=== PATIENT | male | born 1975 | race Caucasian/White ===

== ENCOUNTER 2017-10-29 18:29 | Emergency (ER) | payer OTHER ==
[~2017-10-29 18:29] MED LIST: ALBU8.5H12 IH; ALPR-1 PO; AMIT-104 PO; CODE118S5 PO; DOC100 PO; LOR5/325 PO; NO ROUTINE MEDS; NO RTN MEDS; PER PO; PRED20TA6 PO
[2017-10-29 18:47] VITALS: BP 136/98
[2017-10-29] MEDS ORDERED: DEXT10TA9 PO (18:49)
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
== END 2017-10-29 19:25 | disposition home or self-care (01) ==
LOC: ER 19:24
DX: G25.89 Other specified extrapyramidal and movement disorders (principal); M54.2 Cervicalgia
CPT/HCPCS: 99282

== ENCOUNTER 2017-12-10 19:05 | Emergency (ER) | payer OTHER ==
[~2017-12-10 19:05] MED LIST changes: +DEXT10TA9 PO
[2017-12-10] MEDS ORDERED: DESV50TA PO (19:14)
--- NOTE | 2017-12-10 19:14 | ER Report ---
History and Physical Time Seen By MD: 19:14 Hx. of Stated Complaint: neck pain for a while, had came into the er before, around 1600 the pain got worse again. states that it hurst to swollow take a deep breath HPI/ROS CHIEF COMPLAINT: Neck pain HISTORY OF PRESENT ILLNESS: This is a 42-year-old male presents to the emergency department for neck pain. Patient was seen and evaluated here couple months ago for neck pain, which time he declined imaging and medications however he did follow-up with physical therapy has been doing well with that. Recently he's been doing a fair amount of Mountain biking, no injuries however today he began to have significant pain in his cervical spine and down his left trapezium. Armida ent is actively holding his neck and shoulder INR the room. Patient appears to be in discomfort. No numbness or tingling distal. REVIEW OF SYSTEMS: Constitutional: No fever, no chills. Eyes: No discharge. ENT: No sore throat. Cardiovascular: No chest pain, no palpitations. Respiratory: No cough, no shortness of breath. Gastrointestinal: No abdominal pain, no vomiting. Genitourinary: No hematuria. Musculoskeletal: As above. Skin: No rashes. Neurological: No headache. Allergies: Coded Allergies: cefaclor (Verified Allergy, Mild, 04/13/15) latex (Verified Allergy, Mild, 10/29/17) penicillin G (Verified Allergy, Mild, 04/13/15) adhesive (Unverified Adverse Reaction, Mild, 04/13/15) PEELING SKIN Home Meds Active Scripts Lidocaine (Lidocaine) 5 % Adh..patch, 1 PATCH.24H TOP PRN, #1 PACK 0 Refills Prov:RADHA ALVES [facility] 12/10/17 Ondansetron (ZOFRAN ODT) 4 Mg Tab.rapdis, 4 MG PO Q6H PRN for NAUSEA/VOMITING, #20 TAB.ALEXANDRU Prov:RADHA ALVES [facility] 12/10/17 Hydrocodone Bit/Acetaminophen (HYDROCODON-ACETAMINOPHEN 5-325) 1 Each Tablet, 1 EACH PO Q4-6H PRN for PAIN, #8 TAB 0 Refills Prov:RADHA ALVES [facility] 12/10/17 Diazepam (VALIUM) 5 Mg Tablet, 5 MG PO 2-3XD, #10 TAB 0 Refills Prov:RADHA ALVES [facility]- 12/10/17 Prednisone (PREDNISONE) 20 Mg Tablet, 20 MG PO BID, #10 TAB Prov:RADHA ALVES [facility]- 12/10/17 Reported Medications Desvenlafaxine (DESVENLAFAXINE ER) 50 Mg Tab.er.24h, 50 MG PO 12/10/17 Amphet Asp/Amphet/D-Amphet (ADDERALL 10 MG TABLET) 10 Mg Tablet, 10 MG PO DAILY 10/29/17 Past Medical/Surgical History The patient has a past medical and surgical history of migraines, asthma, left upper quadrant pain, right anterior cruciate ligament repair, chronic neck and back pain, adhesions found on abdominal surgery. Reviewed Nurses Notes: Yes Hx Smoking: No Smoking Status: Never Smoker Hx Substance Use Disorder: No Hx Alcohol Use: Yes Constitutional Vital Sign - Last 24 Hours 12/10/17 19:09 Temp 98.2 Pulse 93 Resp 16 B/P (MAP) 133/93 Pulse Ox 96 O2 Delivery Room Air Physical Exam General Appearance: The patient is alert, has no immediate need for airway protection and no signs of toxicity. Eyes: Pupils equal and round no pallor or injection. ENT, Mouth: Mucous membranes are moist. Respiratory: There are no retractions, lungs are clear to auscultation. Cardiovascular: Regular rate and rhythm. Gastrointestinal: Abdomen is soft and non tender, no masses, bowel sounds normal. Neurological: Alert and oriented 4. Moving all extremities. Following all commands. No focal neuro deficits. Good equal acute care nurse practitioner strength bilaterally. Significant increase in left sided cervical discomfort with resistance when activating the muscles in a cephalad motion. Skin: Warm and dry, no rashes. Musculoskeletal: Cervical spine is tender with palpation, there is an area around C5-C6 that causes significant discomfort with palpation. No numbness or tingling. Extremities are nontender, nonswollen and have full range of motion. DIFFERENTIAL DIAGNOSIS: After history and physical exam differential diagnosis was considered for cervical strain, cervical radiculopathy and subluxation. Medical Decision Making Data Points Result Diagram: 12/10/17195012/10/171950 Laboratory Hematology Test 12/10/17 19:51 Red Blood Count 5.48 M/uL (4.00-5.60) Mean Corpuscular Volume 84.7 fL (80.0-96.0) Mean Corpuscular Hemoglobin 29.0 pg (26.0-33.0) Mean Corpuscular Hemoglobin Concent 34.3 g/dL (32.0-36.0) Red Cell Distribution Width 13.4 % (11.5-14.5) Mean Platelet Volume 8.0 fL (7.2-11.1) Neutrophils (%) (Auto) 57.1 % (39.4-72.5) Lymphocytes (%) (Auto) 32.6 % (17.6-49.6) Monocytes (%) (Auto) 8.3 % (4.1-12.4) Eosinophils (%) (Auto) 1.2 % (0.4-6.7) Basophils (%) (Auto) 0.8 % (0.3-1.4) Nucleated RBC Relative Count (auto) 0.1 /100WBC Neutrophils # (Auto) 3.8 K/uL (2.0-7.4) Lymphocytes # (Auto) 2.1 K/uL (1.3-3.6) Monocytes # (Auto) 0.5 K/uL (0.3-1.0) Eosinophils # (Auto) 0.1 K/uL (0.0-0.5) Basophils # (Auto) 0.1 K/uL (0.0-0.1) Nucleated RBC Absolute Count (auto) 0.00 K/uL Sodium Level 136 mmol/L (137-145) Potassium Level 3.9 mmol/L (3.5-5.0) Chloride Level 103 mmol/L (98-107) Carbon Dioxide Level 24 mmol/L (22-30) Blood Urea Nitrogen 19 mg/dl (9-21) Creatinine 0.90 mg/dl (0.66-1.25) Glomerular Filtration Rate Calc > 60.0 Random Glucose 90 mg/dl (75-110) Calcium Level 9.3 mg/dl (8.4-10.2) Total Bilirubin 0.8 mg/dl (0.2-1.3) Aspartate Amino Transf (AST/SGOT) 30 U/L (0-35) Alanine Aminotransferase (ALT/SGPT) 42 U/L (0-56) Alkaline Phosphatase 52 U/L (0-126) Total Protein 7.2 g/dl (6.3-8.2) Albumin 4.4 g/dl (3.5-5.0) Chemistry Test 12/10/17 19:51 White Blood Count 6.6 k/uL (4.5-11.0) Red Blood Count 5.48 M/uL (4.00-5.60) Hemoglobin 15.9 g/dL (14.0-18.0) Hematocrit 46.4 % (42.0-52.0) Mean Corpuscular Volume 84.7 fL (80.0-96.0) Mean Corpuscular Hemoglobin 29.0 pg (26.0-33.0) Mean Corpuscular Hemoglobin Concent 34.3 g/dL (32.0-36.0) Red Cell Distribution Width 13.4 % (11.5-14.5) Platelet Count 256 K/uL (150-450) Mean Platelet Volume 8.0 fL (7.2-11.1) Neutrophils (%) (Auto) 57.1 % (39.4-72.5) Lymphocytes (%) (Auto) 32.6 % (17.6-49.6) Monocytes (%) (Auto) 8.3 % (4.1-12.4) Eosinophils (%) (Auto) 1.2 % (0.4-6.7) Basophils (%) (Auto) 0.8 % (0.3-1.4) Nucleated RBC Relative Count (auto) 0.1 /100WBC Neutrophils # (Auto) 3.8 K/uL (2.0-7.4) Lymphocytes # (Auto) 2.1 K/uL (1.3-3.6) Monocytes # (Auto) 0.5 K/uL (0.3-1.0) Eosinophils # (Auto) 0.1 K/uL (0.0-0.5) Basophils # (Auto) 0.1 K/uL (0.0-0.1) Nucleated RBC Absolute Count (auto) 0.00 K/uL Glomerular Filtration Rate Calc > 60.0 Calcium Level 9.3 mg/dl (8.4-10.2) Total Bilirubin 0.8 mg/dl (0.2-1.3) Aspartate Amino Transf (AST/SGOT) 30 U/L (0-35) Alanine Aminotransferase (ALT/SGPT) 42 U/L (0-56) Alkaline Phosphatase 52 U/L (0-126) Total Protein 7.2 g/dl (6.3-8.2) Albumin 4.4 g/dl (3.5-5.0) EKG/Imaging Imaging CT Cervical Spine Indication: Neck pain. Comparison: None available. Technique: Axial CT imaging of the cervical spine was performed. 2-D sagittal and coronal CT reformats were also obtained. One of the following dose optimization techniques was utilized in the performance of this exam: automated exposure control; adjustment of the mA and/or kV according to the patient's size; or use of an iterative reconstruction technique. Specific details can be referenced in the facility's radiology CT exam operational policy. Findings: The vertebral bodies are aligned. No fracture or facet dislocation. No bony lesions. Small cystic area seen in the anterior inferior C6 vertebral body without aggressive abnormalities. This may be represent early degenerative changes. No other significant degenerative changes. The endplates are maintained. No obvious disc herniation. Prevertebral soft tissues and surrounding soft tissues are unremarkable. Lung apices are clear. Impression: 1. No acute osseous or acute alignment abnormality of the cervical spine Report Dictated By: He Martinez at 12/10/2017 8:57 PM Report E-Signed By: He Martinez at 12/10/2017 9:01 PM [id number] ED Course/Re-evaluation Clinical Indication for ER IV: IV Access ED Course The patient was admitted to a room. A history physical were obtained. Differential diagnoses were considered. IV was started. The patient was given 30 mg IV Toradol. 5 mg IV Valium 2. Patient was also given 4 mg IV morphine. Patient did begin to have some relief. The CT of the cervical spine was negative for any acute abnormalities. Blood work unremarkable. I did review these results with the patient. I did recommend that he follow-up with Dr. Carrero as soon as possible for a formal evaluation of his neck, which may include an MRI. The patient did express understanding. Then the patient was sent home with a take home pack for Valium, hydrocodone. He was also given 60 mg by mouth prednisone in the ED. Patient was given prescriptions for hydrocodone, Valium, prednisone and Zofran. The patient will schedule follow-up appointment with Dr. Carrero as is possible. Patient did have significant improvement at the time of discharge. The patient was also encouraged to return to the ER for any concerns or worsening symptoms. Decision to Disposition Date: Dec 10, 2017 Decision to Disposition Time: 21:35 Depart Departure Latest Vital Signs Vital Signs Date Time Temp Pulse Resp B/P (MAP) Pulse Ox O2 Delivery O2 Flow Rate FiO2 12/10/17 19:09 98.2 93 16 133/93 96 Room Air Impression: Primary Impression: Neck pain Condition: Improved Disposition: HOME OR SELF-CARE Referrals: ANGEL CARRERO MD 5 Days New Scripts Lidocaine (Lidocaine) 5 % Adh..patch 1 PATCH.24H TOP PRN, #1 PACK 0 Refills Prov: RADHA ALVES [facility] 12/10/17 Ondansetron (ZOFRAN ODT) 4 Mg Tab.rapdis 4 MG PO Q6H PRN for NAUSEA/VOMITING, #20 TAB.ALEXANDRU Prov: RADHA ALVES [facility] 12/10/17 Hydrocodone Bit/Acetaminophen (HYDROCODON-ACETAMINOPHEN 5-325) 1 Each Tablet 1 EACH PO Q4-6H PRN for PAIN, #8 TAB 0 Refills Prov: RADHA ALVES [facility] 12/10/17 Diazepam (VALIUM) 5 Mg Tablet 5 MG PO 2-3XD, #10 TAB 0 Refills Prov: RADHA ALVES [facility] 12/10/17 Prednisone (PREDNISONE) 20 Mg Tablet 20 MG PO BID, #10 TAB Prov: RADHA ALVES [facility] 12/10/17 Patient Instructions: Acute Neck Pain (ED), Chronic Neck Pain (GEN), Neck Pain (ED) Additional Instructions: You have been prescribed Valium and Hydrocodone both are very strong medications, be very cautious when taking these as they can cause severe drowsiness and respiratory depression. Take the valium as needed for muscle spasms. Take the Hydrocodone for severe pain. Take the Zofran for Nausea. Take the prednisone to help decrease the inflammation in your neck, which is likely contributing to the neck discomfort you are having. Please follow up with Dr. Carrero as soon as possible to have a formal evaluation of your neck, this may include an MRI, among other things. While taking the Prednisone, do not take Ibuprofen. If you are taking Hydrocodone, be aware, this does contain Tylenol, so do not take extra Tylenol at the same time. Drink plenty of fluids. Get as much rest as you can. Return to the ED for any other concerns or worsening symptoms. RADHA ALVES [employer]M [employer]INTER-BC Dec 10, 2017 19:14
[2017-12-10] MEDS ORDERED: KETOROLAC 30 MG/ML VIAL IVP ONE (19:30)
[2017-12-10] MEDS ORDERED: DIAZEPAM 50 MG/10 ML MDV IVP ONE ×2 (19:30→21:35)
[2017-12-10 20:04] LABS: PLATELET COUNT, AUTOMATED 256 K/uL (150-450)
[2017-12-10 20:30] VITALS: BP 101/69
[2017-12-10] MEDS ORDERED: MORPHINE 4 MG/ML SDV IVP ONE (21:00)
--- NOTE | 2017-12-10 21:05 | RADIOLOGY IMAGING REPORT ---
FACILITY: [facility] PATIENT NAME: Estrada Granger : 1975 MR: [id number] V: [id number] EXAM DATE: ORDERING PHYSICIAN: RADHA ALVES TECHNOLOGIST: Location: [facility] [place] Patient: Estrada Granger : 1975 Visit/Account:[id number] Date of Sevice: 12/10/2017 CT Cervical Spine Indication: Neck pain. Comparison: None available. Technique: Axial CT imaging of the cervical spine was performed. 2-D sagittal and coronal CT reforma ts were also obtained. One of the following dose optimization techniques was utilized in the performance of this exam: autom ated exposure control; adjustment of the mA and/or kV according to the patient's size; or use of an i terative reconstruction technique. Specific details can be referenced in the facility's radiology CT exam operational policy. Findings: The vertebral bodies are aligned. No fracture or facet dislocation. No bony lesions. Small cystic are a seen in the anterior inferior C6 vertebral body without aggressive abnormalities. This may be repre sent early degenerative changes. No other significant degenerative changes. The endplates are [place]ta[place] dan[place]. No obvious disc herniation. Prevertebral soft tissues and surrounding soft tissues are unremarka ble. Lung apices are clear. Impression: 1. No acute osseous or acute alignment abnormality of the cervical spine Report Dictated By: He Martinez at 12/10/2017 8:57 PM Report E-Signed By: He Martinez at 12/10/2017 9:01 PM [id number]
[2017-12-10] MEDS ORDERED: ACET/HYDROC 5/325MG TH ER ONLY 2 TAB/BOTTLE PO ONE (21:35)
[2017-12-10] MEDS ORDERED: DIAZEPAM 5 MG TAB TH 2 TAB/BOTTLE PO ONE (21:35)
[2017-12-10] MEDS ORDERED: predniSONE 20 MG TAB PO ONE (21:35)
[2017-12-10] MEDS ORDERED: LIDOCAINE 5% PATCH TP SCH (21:35)
[2017-12-10] MEDS ORDERED: ONDA4TAB PO (21:39)
[2017-12-10] MEDS ORDERED: PRED20TA6 PO (21:39)
[2017-12-10] MEDS ORDERED: DIA5 PO (21:39)
[2017-12-10] MEDS ORDERED: HYDR-385 PO (21:39)
[2017-12-10] MEDS ORDERED: LIDO700A19 TOP (21:51)
[2017-12-11] MEDS ORDERED: PATCH REMOVAL 1 EA TOP SCH (21:00)
== END 2017-12-10 22:04 | disposition home or self-care (01) ==
LOC: ER 19:52
DX: M54.2 Cervicalgia (principal)
CPT/HCPCS: 72125; 85025; 96374; 96375; 96376; 99284; J1885; J2270; J3360; J7512; 82040; 82247; 82310; 82374; 82435; 82565; 82947; 84075; 84132; 84155; 84295; 84450; 84460; 84520

== ENCOUNTER 2017-12-12 18:34 | Emergency (ER) | payer OTHER ==
[~2017-12-12 18:34] MED LIST changes: +DESV50TA PO; +DIA5 PO; +HYDR-385 PO; +LIDO700A19 TOP; +ONDA4TAB PO
--- NOTE | 2017-12-12 18:42 | ER Report ---
History and Physical Time Seen By MD: 18:42 Hx. of Stated Complaint: CONTINUED LEFT SIDED NECK PAIN. REPORTS THAT HE HAD MRI THAT WAS INCONCLUSIVE AND HERE FOR CTA OF NECK PER CAT JOSEPH/RADHA CHIEF COMPLAINT: Neck pain HISTORY OF PRESENT ILLNESS: This is a 42-year-old male who returns to the emergency department for recurrent neck pain. The patient was seen and evaluated in the emergency department 2 days ago, did follow-up with the orthopedic outpatient coding specialist Dr. Durant, the patient had an MRI completed at [facility] today, the radiologist read the MRI as normal however there was a concern that there may be a vertebral artery dissection, I could not fully evaluate without contrast, therefore they suggested either a CTA or MRA. The patient arrives alert and oriented, still in pain but manageable at this time. No other complaints. Fevers or chills. No paresthesias. REVIEW OF SYSTEMS: Respiratory: No cough, no dyspnea. Cardiovascular: No chest pain, no palpitations. Gastrointestinal: No vomiting, no abdominal pain. Musculoskeletal: As above. Allergies: Coded Allergies: cefaclor (Verified Allergy, Mild, 04/13/15) latex (Verified Allergy, Mild, 10/29/17) penicillin G (Verified Allergy, Mild, 04/13/15) adhesive (Unverified Adverse Reaction, Mild, 04/13/15) PEELING SKIN Home Meds Active Scripts Diazepam (VALIUM) 5 Mg Tablet, 5 MG PO 2-3XD, #15 TAB Prov:SUKHDEEP ALVES [facility] 12/12/17 Hydrocodone Bit/Acetaminophen (HYDROCODON-ACETAMINOPHEN 5-325) 1 Each Tablet, 1 EACH PO Q4-6H PRN for PAIN, #10 TAB 0 Refills Prov:SUKHDEEP ALVES [facility] 12/12/17 Lidocaine (Lidocaine) 5 % Adh..patch, 1 PATCH.24H TOP PRN, #1 PACK 0 Refills Prov:SUKHDEEP ALEVS [facility] 12/10/17 Ondansetron (ZOFRAN ODT) 4 Mg Tab.rapdis, 4 MG PO Q6H PRN for NAUSEA/VOMITING, #20 TAB.ALEXANDRU Prov:SUKHDEEP ALVES [facility] 12/10/17 Hydrocodone Bit/Acetaminophen (HYDROCODON-ACETAMINOPHEN 5-325) 1 Each Tablet, 1 EACH PO Q4-6H PRN for PAIN, #8 TAB 0 Refills Prov:SUKHDEEP ALVES [facility] 12/10/17 Diazepam (VALIUM) 5 Mg Tablet, 5 MG PO 2-3XD, #10 TAB 0 Refills Prov:SUKHDEEP ALVES [facility] 12/10/17 Prednisone (PREDNISONE) 20 Mg Tablet, 20 MG PO BID, #10 TAB Prov:SUKHDEEP ALVES [facility] 12/10/17 Reported Medications Desvenlafaxine (DESVENLAFAXINE ER) 50 Mg Tab.er.24h, 50 MG PO 12/10/17 Amphet Asp/Amphet/D-Amphet (ADDERALL 10 MG TABLET) 10 Mg Tablet, 10 MG PO DAILY 10/29/17 Past Medical/Surgical History The patient has a past medical and surgical history of migraines, asthma, left upper quadrant pain, right anterior cruciate ligament repair, chronic neck and back pain, adhesions found on abdominal surgery. Reviewed Nurses Notes: Yes Hx Smoking: No Smoking Status: Never Smoker Hx Substance Use Disorder: No Hx Alcohol Use: Yes Constitutional Vital Sign - Last 24 Hours 12/12/17 12/12/17 12/12/17 12/12/17 18:34 18:39 18:41 19:00 Pulse ??? 94 Resp 20 B/P (MAP) 146/85 (105) 146/85 119/81 (94) Pulse Ox 94 O2 Delivery Room Air 12/12/17 12/12/17 19:04 19:30 Pulse 88 B/P (MAP) 111/88 (96) Pulse Ox 96 Physical Exam General Appearance: The patient is alert, has no immediate need for airway protection and no current signs of toxicity. Eyes: Pupils equal and round no injection. Respiratory: Chest is non tender, lungs are clear to auscultation. Cardiac: regular rate and rhythm. Gastrointestinal: Abdomen is soft and non tender, no masses, bowel sounds normal. Musculoskeletal: Neck: Neck is supple, mild tenderness with palpation, no crepitus, ecchymosis or deformity noted. Extremities have full range of motion and are non tender. Skin: No rashes or lesions. DIFFERENTIAL DIAGNOSIS: After history and physical exam differential diagnosis was considered for subluxation, cervical spine strain, vertebral artery dissection. Medical Decision Making Data Points Result Diagram: 12/12/17 1850 Laboratory Hematology Test 12/12/17 18:50 Sodium Level 138 mmol/L (137-145) Potassium Level 4.1 mmol/L (3.5-5.0) Chloride Level 103 mmol/L (98-107) Carbon Dioxide Level 25 mmol/L (22-30) Blood Urea Nitrogen 21 mg/dl (9-21) Creatinine 0.80 mg/dl (0.66-1.25) Glomerular Filtration Rate Calc > 60.0 Random Glucose 172 mg/dl (75-110) Calcium Level 9.0 mg/dl (8.4-10.2) Total Bilirubin 0.3 mg/dl (0.2-1.3) Aspartate Amino Transf (AST/SGOT) 37 U/L (0-35) Alanine Aminotransferase (ALT/SGPT) 58 U/L (0-56) Alkaline Phosphatase 43 U/L (0-126) Total Protein 6.6 g/dl (6.3-8.2) Albumin 4.0 g/dl (3.5-5.0) Chemistry Test 12/12/17 18:50 Glomerular Filtration Rate Calc > 60.0 Calcium Level 9.0 mg/dl (8.4-10.2) Total Bilirubin 0.3 mg/dl (0.2-1.3) Aspartate Amino Transf (AST/SGOT) 37 U/L (0-35) Alanine Aminotransferase (ALT/SGPT) 58 U/L (0-56) Alkaline Phosphatase 43 U/L (0-126) Total Protein 6.6 g/dl (6.3-8.2) Albumin 4.0 g/dl (3.5-5.0) EKG/Imaging Imaging Location: [facility] [place] Patient: Estrdaa Granger : 1975 Visit/Account:[id number] Date of Sevice: 12/12/2017 EXAMINATION: CTA Neck with intravenous contrast HISTORY: Possible left vertebral artery dissection. TECHNIQUE: Overlapping thin sections were obtained during a bolus of IV contrast from the aortic arch through the [place] of [place]. Reconstruction of t he source data set includes multiplanar 2D in the sagittal and coronal planes, and 3D coronal thin slab MIP series. Engineering Geologist images have been stored on PACS. Stenosis of the internal carotid arteries are calculated using NASCET criteria. One of the following dose optimization techniques was utilized in the performance of this exam: Automated exposure control; adjustment of the mA and/or kV according to the patient's size; or use of an iterative reconstruction technique. Specific details can be referenced in the facility's radiology CT exam operational policy. CONTRAST: 75 mL of IV Isovue-370 COMPARISON: Cervical spine MRI from same date. FINDINGS: Angiographic findings: Aortic arch and great vessels: Negative. Right CCA / ICA: Negative. Left CCA / ICA: Negative. Vertebro-basilar: The right vertebral artery is dominant and the left vertebral artery arises from the aortic arch. No evidence of vertebral artery dissection. This appearance on the recent cervical spine MRI is secondary to congenital asymmetry. Additional non-angiographic findings: Mild mucosal thickening in the right maxillary sinus. Rightward nasal septal deviation. IMPRESSION: No evidence of vertebral artery dissection. 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 Report Dictated By: Sukhdeep Rincon MD at 12/12/2017 8:10 PM Report E-Signed By: Sukhdeep Rincon MD at 12/12/2017 8:18 PM WSN:[id number] ED Course/Re-evaluation Clinical Indication for ER IV: IV Access ED Course The patient was admitted to room. His chest and physical were obtained. Differential diagnoses were considered. A CTA of the neck was negative for a vertebral artery dissection. I did review the results with the patient and his . Patient was relieved. The patient will follow-up with Dr. Durant in the next 1-2 days for more definitive treatment of his cervical spine pain. In the interim I did send another prescription for hydrocodone and Valium to the [facility]. The patient was also encouraged to start taking stool softeners and MiraLAX to prevent constipation. Patient expressed understanding and was discharged home. Patient was encouraged to return to the ER for any other concerns or worsening symptoms. Decision to Disposition Date: Dec 12, 2017 Decision to Disposition Time: 20:25 Depart Departure Latest Vital Signs Vital Signs Date Time Temp Pulse Resp B/P (MAP) Pulse Ox O2 Delivery O2 Flow Rate FiO2 12/12/17 19:30 111/88 (96) 12/12/17 19:04 88 96 12/12/17 18:41 20 Room Air Impression: Primary Impression: Neck pain Condition: Improved Disposition: HOME OR SELF-CARE New Scripts Diazepam (VALIUM) 5 Mg Tablet 5 MG PO 2-3XD, #15 TAB Prov: SUKHDEEP ALVES [facility]- 12/12/17 Hydrocodone Bit/Acetaminophen (HYDROCODON-ACETAMINOPHEN 5-325) 1 Each Tablet 1 EACH PO Q4-6H PRN for PAIN, #10 TAB 0 Refills Prov: SUKHDEEP ALVES [facility] 12/12/17 Patient Instructions: Acute Neck Pain (ED) Additional Instructions: There is no evidence of vertebral artery dissection. I did refill the hydrocodone and Valium. Dr. Durant's office will be contacting you in the next 1-2 days for more treatment options. Be sure to start the stool softeners, I would also start a quarter To a half Of MiraLAX once a day. Drink plenty of water. Return to the emergency department for any other concerns or worsening symptoms. SUKHDEEP ALVES [facility] Dec 12, 2017 18:42
[2017-12-12] MEDS ORDERED: IOPAMIDOL 76% 75 ML INFUS BTL 75 ML ONE (19:01)
[2017-12-12] MEDS ORDERED: NS(*) 0.9% 50 ML BAG 50 ML ONE (19:01)
--- NOTE | 2017-12-12 20:21 | RADIOLOGY IMAGING REPORT ---
FACILITY: [facility] PATIENT NAME: Estrada Granger : 1975 MR: [id number] V: [id number] EXAM DATE: [id number] ORDERING PHYSICIAN: RADHA ALVES TECHNOLOGIST: Location: [facility] Patient: Estrada Granger : 1975 Visit/Account:[id number] Date of Sevice: 12/12/2017 EXAMINATION: CTA Neck with intravenous contrast HISTORY: Possible left vertebral artery dissection. TECHNIQUE: Overlapping thin sections were obtained during a bolus of IV contrast from the aortic ar ch through the [place]. Reconstruction of the source data set includes multiplanar 2D in the sagittal and coronal planes, and 3D coronal thin slab MIP series. Assistant Plant Control Operator images have been st ored on PACS. Stenosis of the internal carotid arteries are calculated using NASCET criteria. One of the following dose optimization techniques was utilized in the performance of this exam: Autom ated exposure control; adjustment of the mA and/or kV according to the patient's size; or use of an i terative reconstruction technique. Specific details can be referenced in the facility's radiology C T exam operational policy. CONTRAST: 75 mL of IV Isovue-370 COMPARISON: Cervical spine MRI from same date. FINDINGS: Angiographic findings: Aortic arch and great vessels: Negative. Right CCA / ICA: Negative. Left CCA / ICA: Negative. Vertebro-basilar: The right vertebral artery is dominant and the left vertebral artery arises from the aortic arch. No evidence of vertebral artery dissection. This appearance on the recent cervical s [place] MRI is secondary to congenital asymmetry. Additional non-angiographic findings: Mild mucosal thickening in the right maxillary sinus. Rightward nasal septal deviation. IMPRESSION: No evidence of vertebral artery dissection. The left vertebral artery is congenitally sma ll which accounts for the appearance on the recent cervical spine MRI. Report Dictated By: Radha Rincon MD at 12/12/2017 8:10 PM Report E-Signed By: Radha Rincon MD at 12/12/2017 8:18 PM WSN:[id number]
[2017-12-12] MEDS ORDERED: DIA5 PO (20:29)
[2017-12-12] MEDS ORDERED: HYDR-385 PO (20:29)
[2017-12-12 20:30] VITALS: BP 118/75
== END 2017-12-12 20:39 | disposition home or self-care (01) ==
LOC: ER 18:57
DX: M54.2 Cervicalgia (principal)
CPT/HCPCS: 70498; 99284; J7050; Q9967; 82040; 82247; 82310; 82374; 82435; 82565; 82947; 84075; 84132; 84155; 84295; 84450; 84460; 84520

== ENCOUNTER 2018-02-11 05:20 | Emergency (ER) | payer OTHER ==
[2018-02-11] MEDS ORDERED: NS(*) 0.9% 1000 ML BAG 1,000 ML IV ONE ×2 (05:34→07:55)
--- NOTE | 2018-02-11 05:34 | ER Report ---
History and Physical Time Seen By MD: 05:34 Hx. of Stated Complaint: PATIENT STATES HAVING PAIN IN ABDOMEN SINCE LAST NIGHT AROUND 1900, CAME ON AFTER EATING, HAVING NAUSEA AND VOMITING. PATIENT STATES SAME INCIDENT LAST WEEK. (NINA ROSS MD) HPI/ROS CHIEF COMPLAINT: abdominal pain HISTORY OF PRESENT ILLNESS: This is a 43 year old male. He had onset of epigastric and right upper quadrant abdominal pain starting after eating. Similar thing happened last week. He has had some fatty foods without pain at other times. Pain associated with nausea and vomiting. No change in bowels, normal bowel movements this week. Normal urination. Has felt hot and febrile. No shortness of breath or chest pain. (NINA ROSS MD) Allergies: Coded Allergies: cefaclor (Verified Allergy, Mild, 02/11/18) latex (Verified Allergy, Mild, 02/11/18) penicillin G (Verified Allergy, Mild, 02/11/18) adhesive (Unverified Adverse Reaction, Mild, 02/11/18) PEELING SKIN Home Meds Active Scripts Pantoprazole Sodium (PANTOPRAZOLE SODIUM) 40 Mg Tablet.dr, 40 MG PO QDAY for 30 Days, #30 TAB.SR Prov:TASHA RIVERO MD 02/11/18 Reported Medications Amphet Asp/Amphet/D-Amphet (ADDERALL 10 MG TABLET) 10 Mg Tablet, 20 MG PO DAILY 10/29/17 Discontinued Reported Medications Desvenlafaxine (DESVENLAFAXINE ER) 50 Mg Tab.er.24h, 50 MG PO 12/10/17 Discontinued Scripts Diazepam (VALIUM) 5 Mg Tablet, 5 MG PO 2-3XD, #15 TAB [facility] 12/12/17 Hydrocodone Bit/Acetaminophen (HYDROCODON-ACETAMINOPHEN 5-325) 1 Each Tablet, 1 EACH PO Q4-6H PRN for PAIN, #10 TAB 0 [facility] 12/12/17 Lidocaine (Lidocaine) 5 % Adh..patch, 1 PATCH.24H TOP PRN, #1 PACK 0 [facility]ills [facility] 12/10/17 Ondansetron (ZOFRAN ODT) 4 Mg Tab.rapdis, 4 MG PO Q6H PRN for NAUSEA/VOMITING, #20 TAB.ALEXANDRU Prov:RADHA ALVES [facility] 12/10/17 Hydrocodone Bit/Acetaminophen (HYDROCODON-ACETAMINOPHEN 5-325) 1 Each Tablet, 1 EACH PO Q4-6H PRN for PAIN, #8 TAB 0 Refills Prov:RADHA ALVES [facility] 12/10/17 Diazepam (VALIUM) 5 Mg Tablet, 5 MG PO 2-3XD, #10 TAB 0 Refills Prov:RADHA ALVES [facility] 12/10/17 Prednisone (PREDNISONE) 20 Mg Tablet, 20 MG PO BID, #10 TAB Prov:RADHA ALVES [facility] 12/10/17 Reviewed Nurses Notes: Yes (NINA ROSS MD) Hx Smoking: No Smoking Status: Never Smoker Hx Substance Use Disorder: No Hx Alcohol Use: Yes (NINA ROSS MD) Constitutional Vital Sign - Last 24 Hours 02/11/18 02/11/18 02/11/18 02/11/18 05:26 05:30 05:35 05:50 Temp 97.8 Pulse 84 76 ??? Resp 28 B/P (MAP) 104/80 115/100 (105) Pulse Ox 96 96 94 O2 Delivery Room Air 02/11/18 02/11/18 02/11/18 02/11/18 06:00 06:05 06:20 06:30 Pulse 78 83 B/P (MAP) 119/73 (88) 106/71 (83) Pulse Ox 96 96 02/11/18 02/11/18 02/11/18 02/11/18 06:35 06:50 07:00 07:05 Pulse 86 86 90 B/P (MAP) 111/76 (88) Pulse Ox 94 98 02/11/18 02/11/18 02/11/18 07:10 07:25 07:29 Pulse 88 94 98 Pulse Ox 97 Intake and Output 02/10/18 02/10/18 02/11/18 15:00 23:00 07:00 Intake Total 1000 ml Balance 1000 ml (TASHA RIVERO MD) Physical Exam General Appearance: The patient is alert. Having acute distress due to pain. Eyes: Pupils are equal, round. No pallor, injection or icterus. ENT: Mucous membranes are moist. Respiratory: Lungs are clear to auscultation. Cardiovascular: Regular rate and rhythm. No murmurs, gallops or rubs. Gastrointestinal: Abdomen is soft, tender most in right upper abdomen with positive Worthy's sign. Pain in epigastric area as well. Nondistended. Normal active bowel sounds. No CVA tenderness. Neurological: Alert and oriented x3. Skin: Warm and dry. DIFFERENTIAL DIAGNOSIS: After history and physical exam, differential diagnosis was considered for abdominal pain including but not limited to appendicitis, cholecystitis, enteritis, colitis and urinary tract problem. ([facility] Medical Decision Making Data Points Result Diagram: 02/11/18 0530 02/11/18 0530 Laboratory Hematology Test 02/11/18 05:25 02/11/18 05:30 Urine Color Yellow Urine Clarity Clear Urine pH 5.0 pH (4.8-9.5) Urine Specific [place] 1.023 Urine Protein Negative mg/dL (NEGATIVE) Urine Glucose (UA) Negative mg/dL (NEGATIVE) Urine Ketones 80 mg/dL (NEGATIVE) Urine Blood Negative (NEGATIVE) Urine Nitrite Negative (NEGATIVE) Urine Bilirubin Negative (NEGATIVE) Urine Urobilinogen 2.0 mg/dL (0.2-1.9) Urine Leukocyte Esterase Negative (NEGATIVE) Urine RBC <1 /HPF (0-2/HPF) Urine WBC <1 /HPF (0-5/HPF) Urine Squamous Epithelial Cells None /LPF (</=FEW) Urine Bacteria Few /HPF (NONE-FEW) Urine Mucus None /HPF (NONE-FEW) Red Blood Count 5.92 M/uL (4.00-5.60) Mean Corpuscular Volume 86.4 fL (80.0-96.0) Mean Corpuscular Hemoglobin 29.7 pg (26.0-33.0) Mean Corpuscular Hemoglobin Concent 34.4 g/dL (32.0-36.0) Red Cell Distribution Width 13.6 % (11.5-14.5) Mean Platelet Volume 8.0 fL (7.2-11.1) Neutrophils (%) (Auto) 92.1 % (39.4-72.5) Lymphocytes (%) (Auto) 3.1 % (17.6-49.6) Monocytes (%) (Auto) 4.4 % (4.1-12.4) Eosinophils (%) (Auto) 0.4 % (0.4-6.7) Basophils (%) (Auto) 0.0 % (0.3-1.4) Nucleated RBC Relative Count (auto) 0.0 /100WBC Neutrophils # (Auto) 9.0 K/uL (2.0-7.4) Lymphocytes # (Auto) 0.3 K/uL (1.3-3.6) Monocytes # (Auto) 0.4 K/uL (0.3-1.0) Eosinophils # (Auto) 0.0 K/uL (0.0-0.5) Basophils # (Auto) 0.0 K/uL (0.0-0.1) Nucleated RBC Absolute Count (auto) 0.00 K/uL Sodium Level 136 mmol/L (137-145) Potassium Level 4.8 mmol/L (3.5-5.0) Chloride Level 101 mmol/L (98-107) Carbon Dioxide Level 25 mmol/L (22-30) Blood Urea Nitrogen 18 mg/dl (9-21) Creatinine 1.00 mg/dl (0.66-1.25) Glomerular Filtration Rate Calc > 60.0 Random Glucose 95 mg/dl (75-110) Calcium Level 9.3 mg/dl (8.4-10.2) Total Bilirubin 1.9 mg/dl (0.2-1.3) Aspartate Amino Transf (AST/SGOT) 35 U/L (0-35) Alanine Aminotransferase (ALT/SGPT) 42 U/L (0-56) Alkaline Phosphatase 76 U/L (0-126) Total Protein 7.6 g/dl (6.3-8.2) Albumin 4.7 g/dl (3.5-5.0) Amylase Level 57 U/L (0-110) Lipase 36 U/L (23-300) Chemistry Test 02/11/18 05:25 02/11/18 05:30 Urine Color Yellow Urine Clarity Clear Urine pH 5.0 pH (4.8-9.5) Urine Specific [place] 1.023 Urine Protein Negative mg/dL (NEGATIVE) Urine Glucose (UA) Negative mg/dL (NEGATIVE) Urine Ketones 80 mg/dL (NEGATIVE) Urine Blood Negative (NEGATIVE) Urine Nitrite Negative (NEGATIVE) Urine Bilirubin Negative (NEGATIVE) Urine Urobilinogen 2.0 mg/dL (0.2-1.9) Urine Leukocyte Esterase Negative (NEGATIVE) Urine RBC <1 /HPF (0-2/HPF) Urine WBC <1 /HPF (0-5/HPF) Urine Squamous Epithelial Cells None /LPF (</=FEW) Urine Bacteria Few /HPF (NONE-FEW) Urine Mucus None /HPF (NONE-FEW) White Blood Count 9.8 k/uL (4.5-11.0) Red Blood Count 5.92 M/uL (4.00-5.60) Hemoglobin 17.6 g/dL (14.0-18.0) Hematocrit 51.2 % (42.0-52.0) Mean Corpuscular Volume 86.4 fL (80.0-96.0) Mean Corpuscular Hemoglobin 29.7 pg (26.0-33.0) Mean Corpuscular Hemoglobin Concent 34.4 g/dL (32.0-36.0) Red Cell Distribution Width 13.6 % (11.5-14.5) Platelet Count 245 K/uL (150-450) Mean Platelet Volume 8.0 fL (7.2-11.1) Neutrophils (%) (Auto) 92.1 % (39.4-72.5) Lymphocytes (%) (Auto) 3.1 % (17.6-49.6) Monocytes (%) (Auto) 4.4 % (4.1-12.4) Eosinophils (%) (Auto) 0.4 % (0.4-6.7) Basophils (%) (Auto) 0.0 % (0.3-1.4) Nucleated RBC Relative Count (auto) 0.0 /100WBC Neutrophils # (Auto) 9.0 K/uL (2.0-7.4) Lymphocytes # (Auto) 0.3 K/uL (1.3-3.6) Monocytes # (Auto) 0.4 K/uL (0.3-1.0) Eosinophils # (Auto) 0.0 K/uL (0.0-0.5) Basophils # (Auto) 0.0 K/uL (0.0-0.1) Nucleated RBC Absolute Count (auto) 0.00 K/uL Glomerular Filtration Rate Calc > 60.0 Calcium Level 9.3 mg/dl (8.4-10.2) Total Bilirubin 1.9 mg/dl (0.2-1.3) Aspartate Amino Transf (AST/SGOT) 35 U/L (0-35) Alanine Aminotransferase (ALT/SGPT) 42 U/L (0-56) Alkaline Phosphatase 76 U/L (0-126) Total Protein 7.6 g/dl (6.3-8.2) Albumin 4.7 g/dl (3.5-5.0) Amylase Level 57 U/L (0-110) Lipase 36 U/L (23-300) Urinalysis Test 02/11/18 05:25 Urine Color Yellow Urine Clarity Clear Urine pH 5.0 pH (4.8-9.5) Urine Specific [place] 1.023 Urine Protein Negative mg/dL (NEGATIVE) Urine Glucose (UA) Negative mg/dL (NEGATIVE) Urine Ketones 80 mg/dL (NEGATIVE) Urine Blood Negative (NEGATIVE) Urine Nitrite Negative (NEGATIVE) Urine Bilirubin Negative (NEGATIVE) Urine Urobilinogen 2.0 mg/dL (0.2-1.9) Urine Leukocyte Esterase Negative (NEGATIVE) Urine RBC <1 /HPF (0-2/HPF) Urine WBC <1 /HPF (0-5/HPF) Urine Squamous Epithelial Cells None /LPF (</=FEW) Urine Bacteria Few /HPF (NONE-FEW) Urine Mucus None /HPF (NONE-FEW) (TASHA RIVERO MD) ED Course/Re-evaluation ED Course Very pleasant 43-year-old male with acute on chronic mid epigastric and right upper quadrant abdominal pain. Normal labs and imaging. No evidence to suggest surgical abdomen or infection. We had a long discussion about diet. His agrees and is at the bedside. He did improve somewhat with Protonix, so we will give him a prescription for Protonix and also follow-up with a GI physician. Decision to Disposition Date: Feb 11, 2018 Decision to Disposition Time: 09:10 (TASHA RIVERO MD) Depart Departure Latest Vital Signs Vital Signs Date Time Temp Pulse Resp B/P (MAP) Pulse Ox O2 Delivery O2 Flow Rate FiO2 02/11/18 07:29 98 02/11/18 07:25 97 02/11/18 07:00 111/76 (88) 02/11/18 05:26 97.8 28 Room Air (TASHA RIVERO MD) Impression: Primary Impression: Abdominal pain Condition: Improved Disposition: HOME OR SELF-CARE Referrals: TONIA ALANIZ MD New Scripts Pantoprazole Sodium (PANTOPRAZOLE SODIUM) 40 Mg Tablet.dr 40 MG PO QDAY for 30 Days, #30 TAB.SR Prov: TASHA RIVERO MD 02/11/18 Patient Instructions: Abdominal Pain (ED) Problem Qualifiers Primary Impression: Abdominal pain Abdominal location: epigastric Qualified Codes: R10.13 - Epigastric pain NINA ROSS MD Feb 11, 2018 05:34 TASHA RIVERO MD Feb 11, 2018 09:13
[2018-02-11] MEDS ORDERED: ONDANSETRON 4 MG/2 ML VIAL IVP ONE ×2 (05:35→07:55)
[2018-02-11] MEDS ORDERED: MORPHINE 4 MG/ML SDV IVP ONE (05:45)
[2018-02-11 05:46] LABS: PLATELET COUNT, AUTOMATED 245 K/uL (150-450)
[2018-02-11] MEDS ORDERED: HYDROMORPHONE HCL 1 MG/ML SYRINGE IVP ONE (06:10)
--- NOTE | 2018-02-11 07:06 | RADIOLOGY IMAGING REPORT ---
[place] [facility] [place] Estrada Granger : 1975 MR: [id number] V: [id number] EXAM DATE: ORDERING PHYSICIAN: NINA ROSS TECHNOLOGIST: Location: [facility] [place] Patient: Estrada Granger : 1975 Visit/Account:[id number] Date of Sevice: 02/11/2018 Limited ultrasound of the abdomen: Indication: Epigastric and right upper quadrant pain. Technique: Routine imaging, with Doppler. Comparison: 04/01/2013 Gallbladder: Normal in size and shape. There is a 3 mm polyp on the anterior wall, not significantly changed from the prior study. There are no definite signs of calculi or sludge. There is no thickenin g or edema of the wall. Biliary tree: Normal in caliber. The CBD measures less than 4 mm. Liver: Normal in size, shape, and echogenicity. The right lobe measures 14.0 cm. The portal vein is p atent with antegrade flow. Pancreas: Well visualized and unremarkable. Spleen: Not evaluated. Kidneys: The right kidney measures 8.2 x 4.2 x 3.9 cm, which is decreased from the prior study. No fo pamela abnormalities are identified. There are no signs of obstruction. The left kidney was not evaluated. Aorta and IVC: Unremarkable, as visualized. Ascites: None seen. Impression: A tiny polyp in the gallbladder appears unchanged. There are no signs of cholelithiasis. The right kidney appears decreased in size, but otherwise unremarkable. Report Dictated By: Papo Salmeron MD at 02/11/2018 6:56 AM Report E-Signed By: Papo Salmeron MD at 02/11/2018 7:02 AM WSN:[id number]
[2018-02-11] MEDS ORDERED: fentaNYL CITR 100 MCG/2 ML AMP IVP ONE (07:55)
[2018-02-11] MEDS ORDERED: PANTOPRAZOLE SOD(*)40 MG VIAL 80 MG in NS(*) 0.9% 100 ML BAG 100 ML IVPB ONE (07:55)
[2018-02-11] MEDS ORDERED: PANTOPRAZOLE SOD 40 MG IV VIAL IVP ONE (08:00)
[2018-02-11] MEDS ORDERED: IOPAMIDOL 76% 75 ML INFUS BTL 75 ML ONE (08:07)
--- NOTE | 2018-02-11 08:47 | RADIOLOGY IMAGING REPORT ---
FAC[facility] PATIENT NAME: Estrada Granger : 1975 MR: [id number] V: [id number] EXAM DATE: ORDERING PHYSICIAN: TASHA RIVERO TECHNOLOGIST: Location: [facility] Patient: Estrada Granger : 1975 Visit/Account:[id number] Date of Sevice: 02/11/2018 CT abdomen and pelvis with IV contrast Indication: Right upper quadrant and mid epigastric pain. Comparison: CT examination from July 2015. Technique: Axial CT images were obtained through the abdomen and pelvis during injection of nonioni c iodinated intravenous contrast. Reformatted coronal and sagittal images were also obtained. One of the following dose optimization techniques was utilized in the performance of this exam: Automated ex posure control; adjustment of the mA and/or kV according to the patient's size; or use of an iterativ e reconstruction technique. Specific details can be referenced in the facility's radiology CT exam operational policy. Contrast: 75 ml of Isovue-370 IV contrast. Findings: Lower lung denis: Limited views lower lung field are unremarkable. Liver: No focal parenchymal abnormality of the liver. Biliary: Gallbladder appears unremarkable as well as the intra and extra hepatic biliary system. Pancreas: Normal appearance. Spleen: Normal appearance. Adrenal glands: Unremarkable. Kidneys / retroperitoneum: No evidence of nephrolithiasis or hydronephrosis Bowel / peritoneum / mesenteries: Small and large intestine are unremarkable. There is no evidence o f free air, drainable fluid collection or abscess within the abdomen or pelvis. Lymph node assessment: No lymphadenopathy by size criteria. Pelvic structures: Appear unremarkable. Vessels: No significant atherosclerotic calcifications seen throughout a nonaneurysmal abdominal aort a and branches. Musculoskeletal / Body wall: No acute or aggressive osseous abnormality. IMPRESSION: 1. No evidence of acute intra-abdominal or pelvic pathology. Report Dictated By: Carlos Higgins MD at 02/11/2018 8:38 AM Report E-Signed By: Carlos Higgins MD at 02/11/2018 8:44 AM WSN:[email or web address]
[2018-02-11 09:00] VITALS: BP 109/69
[2018-02-11] MEDS ORDERED: PANT40TA65 PO (09:13)
== END 2018-02-11 09:22 | disposition home or self-care (01) ==
LOC: ER 05:24
DX: R10.13 Epigastric pain (principal); R10.11 Right upper quadrant pain
CPT/HCPCS: 74177; 76705; 81001; 82150; 83690; 85025; 96361; 96374; 96375; 96376; 99284; C9113; J1170; J2270; J2405; J3010; J7030; Q9967; 82040; 82247; 82310; 82374; 82435; 82565; 82947; 84075; 84132; 84155; 84295; 84450; 84460; 84520; 99285